=== PATIENT | female | born 1945 | race Caucasian/White ===

== ENCOUNTER 2021-10-29 14:03 | Emergency (ER) | payer MEDICARE ==
[~2021-10-29] VITALS: Ht 167.6 cm; Wt 101.4 kg
[2021-10-29 14:25] VITALS: BP 164/76
--- NOTE | 2021-10-29 15:36 | PHYS DOC ---
Past Medical History Past Surgical History: Cholecystectomy Additional Past Surgical Histo: bladder tuck, shoulder surgery General Adult EDM: Chief Complaint: DENTAL PROBLEM HPI: HPI: Patient is a 76-year-old female presents to the emergency department complaining of left-sided upper and lower gum pain for the past week. Patient states she has full upper and lower dentures. States she has not had them evaluated by dentist in several years. Denies traumatic injury to her mouth or head. States it hurts when she eats or talks for a period of time. Otherwise does not have any pain or discomfort. Patient reports her pain is a sharp stabbing pain at a 9 out of 10 when she is hurting otherwise she is a 0 out of 10. Patient denies pain or discomfort currently. Patient denies recent fever or chills, patient denies chest pain, chest palpitations, diaphoretic episodes, chest or nasal congestion. Patient denies other physical complaints or physical concerns. Patient states she has not taken any prescription or [id number] medications. Patient denies trying nonpharmacological pain relief methods at home. Review of Systems: Review of Systems: 14 body systems of review of systems have been reviewed. See HPI for pertinent positives and negative responses, otherwise all other systems are negative, nonpertinent or noncontributory. Constitutional: Negative except as outlined in HPI above. Skin: Negative except as outlined in HPI above. Eyes: Negative except as outlined in HPI above. HENT: Negative except as outlined in HPI above. Respiratory: Negative except as outlined in HPI above. Cardiovascular: Negative except as outlined in HPI above. GI: Negative except as outlined in HPI above. : Negative except as outlined in HPI above. Musculoskeletal: Negative except as outlined in HPI above. Integument: Negative except as outlined in HPI above. Neurologic: Negative except as outlined in HPI above. Endocrine: Negative except as outlined in HPI above. Lymphatic: Negative except as outlined in HPI above. Psychiatric: Negative except as outlined in HPI above. Heart Score: C/O Chest Pain: No Risk Factors: Risk Factors: DM, Current or recent (<one month) smoker, HTN, HLP, family history of CAD, obesity. Risk Scores: Score 0 - 3: 2.5% MACE over next 6 weeks - Discharge Home Score 4 - 6: 20.3% MACE over next 6 weeks - Admit for Clinical Observation Score 7 - 10: 72.7% MACE over next 6 weeks - Early Invasive Strategies Allergies: Allergies: Allergies Coded Allergies Type Severity Reaction Last Updated Verified No Known Drug Allergies 10/29/21 No Physical Exam: PE: Constitutional: Well developed, well nourished, no acute distress, non-toxic appearance. 76-year-old female in no apparent distress. HENT: Normocephalic, atraumatic. Oropharynx moist, pink, no deep tissue infectious process appreciated, the patient has no teeth, patient did not bring dentures, pain to palpation along left lower and upper gumline, no erythema or infectious process appreciated. No lymphadenopathy of the head or neck appreciated, bilateral TMs intact and within normal limits. Eyes: Conjunctiva normal, no discharge. Neck: Normal range of motion, no stridor. No nuchal rigidity, no meningismus signs. Cardiovascular: No cyanosis appreciated, distal cap refill less than 2 seconds. Irregular rate, heart rate 100 bpm patient has history of atrial fibrillation. Lungs & Thorax: Patient is in no respiratory distress, no audible adventitious lung sounds appreciated. Lung sounds are clear to auscultation all lung valdes. Abdomen: Nontender, no abnormalities noted. Skin: Warm, dry, no erythema, no rash. Back: No tenderness, no deformities. Extremities: No tenderness, no cyanosis, no clubbing, ROM intact, no edema. Neurologic: Alert and oriented X 3, normal motor function, normal sensory function, no focal deficits noted. Psychologic: Affect normal, judgement normal, mood normal. Current Patient Data: Vital Signs: Vital Signs Date Time Temp Pulse Resp B/P (MAP) Pulse Ox O2 Delivery O2 Flow Rate FiO2 10/29/21 14:25 97.6 104 18 164/76 (105) 92 Room Air 97.6 EKG: EKG: EKG performed at 1618 by ED nursing staff shows a sinus tachycardia heart rate 101 bpm, MT interval 0.228, QTc interval 0.442, no acute STEMI, no ACS, no acute ischemia appreciated, EKG interpreted by ED attending physician Dr. Larsen. Radiology/Procedures: Radiology/Procedures: [] Course & Med Decision Making: Course & Med Decision Making Pertinent Labs and Imaging studies reviewed. (See chart for details) 76-year-old female, vital signs reviewed, presents emerged department concerning gum pain intermittent for the past week. Patient's physical examination concerning for gum infection versus malfitting dentures. Patient has no pain unless chilling, did not have pain until I palpated upper and lower gum lines, there was no purulent drainage appreciated, the patient did not try oral medications for pain. Patient does have a history of atrial fibrillation, will obtain EKG related to tachycardic presentation of 101 bpm. Discussed with patient will prescribe ibuprofen for pain, will cover prophylactically with antibiotic, strict follow-up with dentist this week, will give dental referral, patient states she does have an appointment with her primary care physician this coming Sunday, discussed with patient to keep this appointment. Reviewed return to ER precautions and concerns, patient gave verbal understanding of and is amenable to ED discharge planning. Aleah Disclaimer: Aleah Disclaimer: This electronic medical record was generated, in whole or in part, using a voice recognition dictation system. Departure Departure Impression: Primary Impression: Pain in gums Disposition: HOME / SELF CARE / HOMELESS Condition: GOOD Patient Instructions: Dental Pain Additional Instructions: You were seen today in the emergency department for pain of the left side upper and lower gums when chewing or speaking. Your evaluation was nonconcerning for an acute infectious process however related to your complaint I have prescribed an antibiotic and a pain medication, please take as directed until complete. It is very important that you follow-up with a dentist so that your dentures can be examined and evaluated for proper alignment as this may be the root cause of your pain. Please keep your appointment with your primary care physician this coming Sunday. Return to the emergency department for worsening symptoms or other concerns. Thank you for visiting our Emergency Department. It was a pleasure taking care of you today in the emergency department and we appreciate you trusting us with your care. If any additional problems come up don't hesitate to return to visit us. Please follow up with your primary care provider so they can plan additional care if needed and know about the problem that you had. If symptoms worsen come back to the Emergency Department. Any concerning symptoms that start such as chest pain, shortness of air, weakness or numbness on one side of the body, running high fevers or any other concerning symptoms return to the ER. Scripts Amoxicillin/Potassium Clav (AMOX TR-K CLV 875-125 MG TAB) 1 Each Tablet 1 TAB PO BID, #20 TAB 0 Refills Prov: MIKE PHAM APRN 10/29/21 Ibuprofen (IBUPROFEN) 600 Mg Tablet 600 MG PO PRN Q6HRS PRN for INFLAMMATION, #30 TAB 0 Refills Prov: MIKE PHAM APRN 10/29/21 MIKE PHAM APRN Oct 29, 2021 15:36
[2021-10-29] MEDS ORDERED: AMOX1TAB11 PO (16:04)
[2021-10-29] MEDS ORDERED: IBUP-1007 PO (16:04)
[2021-10-29] MEDS ORDERED: ACETAMINOPHEN 325 MG TABLET. PO ONE (16:15)
[2021-10-29] MEDS ORDERED: AMOXICILLIN/K CLAV 875/125MG TABLET. PO ONE (16:15)
[2021-10-29] MEDS ORDERED: IBUPROFEN 200 MG TABLET. PO ONE (16:15)
--- NOTE | 2021-10-29 19:56 | EKG ---
[facility] [address] [place] [address] Test Date: 2021-10-29 Test Time: 16:18:48 Pat Name: LOKESH SHEPHERD Department: Room: Gender: F [employer] Sales Coordinator: : 1945 Requested By: MIKE PHAM Order Number: [id number] Reading MD: Montez Alanis MD Measurements Intervals [place] Rate: 101 P: 64 AL: 228 QRS: 84 QRSD: 96 T: 17 QT: 340 QTc: 442 Interpretive Statements SINUS TACHYCARDIA PROLONGED AL INTERVAL Electronically Signed On 11-01-2021 7:09:27 CDT by Montez Alanis MD
== END 2021-10-29 16:24 | disposition home or self-care (01) ==
LOC: ER 14:03
DX: K06.8 Other specified disorders of gingiva and edentulous alveolar ridge (principal)
CPT/HCPCS: 93005; 99283